=== PATIENT | female | born 2005 | race Caucasian/White ===

== ENCOUNTER 2023-11-25 14:35 | Outpatient (AMB) | payer OTHER, SELFPAY ==
--- NOTE | 2023-11-25 14:41 | MHC.OFFWIV ---
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 Patient states she woke up this morning and felt a lot of urgency. She has had a UTI in the past and this feels similar. PFSH Social History Patient Tobacco Use Status: Never used Tobacco Physical Exam Vital Signs: Last Vital Signs Temp 97.8 F 11/25/23 14:51 Pulse 80 11/25/23 14:51 BP 110/64 11/25/23 14:51 Pulse Ox 98 11/25/23 14:51 Const General: healthy appearing and no acute distress HEENT Head: Yes normal to inspection Resp Effort & Inspection: normal respiratory effort and able to speak in complete sentences GI Inspection: Yes normal to inspection Assessment & Plan Assessment & Plan (1) UTI (urinary tract infection), uncomplicated: Code(s): N39.0 - Urinary tract infection, site not specified Plan Urine dip in the office today shows time hematuria patient is not currently on her menstrual cycle around feel like her symptoms are consistent with UTI. Will treat with antibiotic Medications: New sulfamethoxazole-trimethoprim 800-160 mg (Bactrim DS) 1 tab PO BID 5 days 10 tabs 0RF Coding Level of Care Code Est Pt Level 3 (59353) Diagnoses UTI (urinary tract infection), uncomplicated N39.0
[2023-11-25 14:51] VITALS: BP 110/64; PULSE 80; TEMP 36.6; O2SAT 98
== END 2023-11-25 15:19 | disposition home or self-care (01) ==
PROVIDERS: PCP Pediatrics; Visit Provider Emergency Medicine
DX: N39.0 Urinary tract infection, site not specified (principal)
CPT/HCPCS: 99213